=== PATIENT | male | born 1990 | race Caucasian/White ===

== ENCOUNTER 2020-06-02 14:06 | Emergency (ER) | payer OTHER ==
[~2020-06-02] VITALS: Ht 182.9 cm; Wt 83.9 kg
[2020-06-02] MEDS ORDERED: LEXAPRO 10 MG T10 M2 PO (14:20)
[2020-06-02] MEDS ORDERED: KEFLEX500 M1 PO (15:17)
[2020-06-02] MEDS ORDERED: HYDROCODON-ACE1 EAC7 PO (15:17)
[2020-06-02 15:26] VITALS: BP 136/85
== END 2020-06-02 15:27 | disposition home or self-care (01) ==
LOC: M.ERS 14:06
DX: S61.213A Laceration without foreign body of left middle finger without damage to nail, initial encounter (principal); Z90.49 Acquired absence of other specified parts of digestive tract; W45.8XXA Other foreign body or object entering through skin, initial encounter; Y93.89 Activity, other specified; Y92.89 Other specified places as the place of occurrence of the external cause; Y99.8 Other external cause status